=== PATIENT | female | born 1930 | race Caucasian/White ===

== ENCOUNTER 2017-05-18 11:12 | Inpatient (IN) | payer MEDICARE, OTHER ==
[2017-05-18 12:09] LABS: #Lymphocytes 1.4 thou/uL (1.20-3.40); #Monocytes 1.2 thou/uL (0.11-0.59); #Neutrophils 6.7 thou/uL (1.40-6.50); %Eosinophils 0.4 % (0.0-10.0); %Monocytes 12.7 % (0.0-10.0); Hematocrit 40.2 % (36.0-47.0); Mean Platelet Volume 7.9 fL (7.4-10.4); White Blood Cell (WBC) Count 9.3 thou/uL (4.8-10.8)
[2017-05-18 12:18] LABS: Prothrombin Time 14.2 SEC (12.0-14.7)
[2017-05-18 12:19] LABS: PTT 40.1 SEC (22.9-36.1)
[2017-05-18 12:32] LABS: ALT (SGPT) 19 U/L (8-55); AST (SGOT) 23 U/L (5-34); Alkaline Phosphatase 116 U/L (40-150); Anion Gap 13 mmol/L (10-20); BUN (Urea Nitrogen) 13 mg/dL (9.8-20.1); Bilirubin, Total 0.6 mg/dL (0.2-1.2); CK (CPK) 113 U/L (29-168); Calc. Creatinine Clearance 0 mL/min (70-130); Calcium 10.8 mg/dL (7.8-10.44); Carbon Dioxide 22 mmol/L (23-31); Chloride 105 mmol/L (98-107); Estimated GFR-MDRD 64; Globulin 2.7 g/dL (2.4-3.5); Lipase 40 U/L (8-78); Protein, Total 6.8 g/dL (6.0-8.3)
[2017-05-18 12:36] LABS: Troponin I 0.016 ng/mL (< 0.028)
--- NOTE | 2017-05-18 12:44 | RAD ---
FRONTAL CHEST RADIOGRAPH: 05/18/2017 COMPARISON: 06/12/2016 HISTORY: Shortness of breath and congestion, cough. FINDINGS: There is new hazy opacity in the left lung base partially obscuring the lateral aspect of the left he midiaphragm. Post-surgical clips are present in right upper quadrant. Stable dual-lead transvenous pacing device in place. A loop recorder overlies the left hemithorax. There is a rounded area of density with internal gas noted at the gastroesophageal junction/lower nakia st, evidence of a hiatal hernia. IMPRESSION: New patchy opacities noted within the left lung base. These findings may be on the basis of infectio us pneumonitis/aspiration. Recommend PA and lateral chest imaging following treatment to document re solution. POS: [facility]
[2017-05-18 16:24] LABS: Bilirubin Negative (Negative); Blood, Urine Negative (Negative); Glucose, Urine (Dipstick) Negative (Negative); Ketone, Urine Negative (Negative); Nitrite Positive (Negative); Protein, Urine (Dipstick) Trace mg/dL (Neg-Trace); Urobilinogen 0.2 mg/dL (0.2-1.0)
[2017-05-18 16:39] LABS: RBC/HPF 0-3 HPF (0-3); Squamous Epithelial 21-50 HPF (0-3); WBC/HPF 0-3 HPF (0-3)
[2017-05-18] MEDS ORDERED: Cefepime 2 GM/10 ML SYR ONE (16:39)
[2017-05-18 16:40] LABS: Bacteria/HPF Rare-Few HPF (None Seen); Hyaline Casts/LPF NONE SEEN LPF (0-3 Hyaline)
--- NOTE | 2017-05-18 16:45 | PDOC.EVN ---
Event Note - Event Note Event Note: Pt admbayron,connie note dictated. Discussed with her MPOA Hernandezlinwood Davalos at the Bedside. She has an OOH DNR and pt does not want CPR, intubation, shocks, but BiPAP is okay. Code status update din the chart.
--- NOTE | 2017-05-18 17:14 | HP ---
CHIEF COMPLAINT: Shortness of breath. HISTORY OF PRESENT ILLNESS: Ms. Brown is an 86-year-old white female with a history of coronary a rtery disease, hypertension, hyperlipidemia, past DVTs and pulmonary emboli, and multiple cancers who presents to the Emergency Department for shortness of breath. The patient is a resident of [facility]. She woke up this morning and was not acting her normal self. Seemed to be more tired, no appetite, and had a very wet cough. Family was contac mouna and she was sent to the emergency department for evaluation. Here, her labs have been normal. S he has had a decreased O2 saturations relieved by being on 2 liters nasal cannula, her vitals have be en relatively stable, and chest x-ray showed a possible left lower lobe basal infiltrate. We were abdullahi bsequently called for admission. The patient just feels too weak to go home. She denies any fevers or chills, no GI bleeding, no chest pain, no diarrhea or constipation. PAST MEDICAL HISTORY: 1. Coronary artery disease status post [place] 2014. Last heart catheterization was in 06/2016. 2. Hypertension. 3. Hyperlipidemia. 4. Bladder cancer. 5. Renal tumor. 6. Osteoarthritis. 7. Dementia. 8. History of deep venous thrombosis/pulmonary embolism. PAST SURGICAL HISTORY: 1. PTCA in 2017. 2. Pacemaker placement. 3. Bladder tumor resection x4. 4. Bilateral total knee arthroplasty. 5. Left total hip arthroplasty. 6. Basal cell carcinoma removal. HOME MEDICATIONS: 1. Amlodipine 5 mg p.o. daily. 2. Atorvastatin 40 mg p.o. at bedtime. 3. Namenda 10 mg p.o. b.i.d. 4. Aspirin 81 mg daily. 5. Multivitamin daily. 6. MiraLax 17 grams p.o. daily. 7. KCl 20 mEq p.o. b.i.d. 8. Lisinopril 10 mg daily. 9. Isosorbide mononitrate 30 mg p.o. daily. 10. Sublingual nitro p.r.n. ALLERGIES: PENICILLIN, reaction not even sure that she really has it. FAMILY HISTORY: Negative for clotting or bleeding disorder, no immune dysfunction. Not relevant in 86-year-old. SOCIAL HISTORY: She lives at [facility]. Negative habits x3. Her sons accompanied her here. REVIEW OF SYSTEMS: A 10-point review of systems was performed, negative for all other systems except as per HPI. PHYSICAL EXAMINATION: VITAL SIGNS: Temperature 98.2, pulse 96, blood pressure 179/73, respiratory rate 21, satting 94% on 2 liters. GENERAL: She is awake. She is alert. She is oriented to person and place. She appears to be in no acute distress, but looks like she does feel well. HEENT: Normocephalic, atraumatic. Pupils equal, reactive bilaterally. Mucosa is moist. She has no visible lesions and no thrush. NECK: Supple, without lymphadenopathy, JVD, or thyromegaly. CHEST: Lungs are clear anteriorly and on the right. Laterally and posteriorly in the base on the le ft. There are some crackles. They actually do clear with deep inspiration. On the upper right side and upper left thigh, she does have some high pitched expiratory wheezing. CARDIOVASCULAR: She has a normal S1, S2. She is slightly tachycardic. She has no audible murmurs a re present. ABDOMEN: Soft. It is nontender, nondistended. She has good bowel sounds. She does have a ventral hernia. There is no rebound, rigidity or guarding. EXTREMITIES: No cyanosis, no clubbing, and no edema. She has 1+ peripheral pulses in dorsalis pedis and the posterior tibial arteries bilaterally. SKIN: Otherwise warm, moist and well perfused. She has no rashes, no lesions. MUSCULOSKELETAL: Normal to inspection. Bilateral knee arthroplasty site incisions are clean, dry, a nd intact. She has no erythema and no palpable effusions. NEUROLOGIC: Cranial nerves II-XII to be grossly intact. She has a normal speech, she has 4/5 streng th in all 4 of her extremities. She has no focal deficits. LABORATORY EVALUATION: CMP shows sodium 136, potassium 4.2, creatinine 0.84, glucose 125, calcium 10 .8 and liver functions are normal. CBC showed a white count of 9.3 with a normal differential, hemoglobin 13.0, hematocrit of 40.2, plat elet count 213,000. INR was 1.1. CK-MB was 1.3. Troponin I was 0.016. Lipase is normal at 40. Ch est x-ray showed left basilar patchy infiltrate, hiatal hernia, but otherwise no acute cardiopulmonar y disease. ASSESSMENT AND PLAN: 1. Community-acquired pneumonia: Left base. The patient does not have a history of aspiration. I will place her on levofloxacin. She does have unlikely, but present PENICILLIN allergy. We will not challenge her today. 2. Acute hypoxemic respiratory failure. The patient is requiring oxygen. She has been expiratory w heezing. We will give some albuterol nebulizer treatments p.r.n. and DuoNebs q.2 h. She does not martell ve a history of chronic obstructive pulmonary disease or tobacco use. We will not give her steroids at this point in time. 3. Coronary artery disease, currently stable. CK-MB and troponin negative. No symptoms. 4. Hypertension, amlodipine, and lisinopril. We will continue the isosorbide. We will continue at present. 5. Hyperlipidemia, on atorvastatin. We will continue. 6. History of dementia, on Namenda, we will continue. Also, continue aspirin 81 mg daily. The patient will be placed in observation overnight, repeat chest x-ray in the morning, repeat lab wo rk in the morning, continue antibiotics. We will reevaluate her at that time.
[2017-05-18] MEDS ORDERED: HYDROcodone/Acetaminophen 5/325 mg Tablet PO PRN (19:02)
[2017-05-18] MEDS ORDERED: Ondansetron ODT 4 MG TAB PO PRN (19:02)
[2017-05-18] MEDS ORDERED: Acetaminophen 325 MG TAB PO PRN (19:02)
[2017-05-18] MEDS: Sodium Chloride 0.9% 1,000 ML IV SCH (20:08)
[2017-05-18] MEDS: Famotidine 20 MG TAB PO SCH (20:08)
[2017-05-18] MEDS ORDERED: Ipratropium Bromide 2.5 ml Neb ONE (20:09)
[2017-05-18] MEDS: Albuterol Sulfate 2.5 mg/3 ml Neb NEB SCH ×3 (20:37→21:31)
[2017-05-18 21:43] VITALS: BMI 26.1
[2017-05-19] MEDS: Albuterol Sulfate 2.5 mg/3 ml Neb NEB SCH ×3 (00:27→05:57)
[2017-05-19 05:07] LABS: Anion Gap 11 mmol/L (10-20); BUN (Urea Nitrogen) 12 mg/dL (9.8-20.1); Calc. Creatinine Clearance 56 mL/min (70-130); Calcium 10.2 mg/dL (7.8-10.44); Carbon Dioxide 23 mmol/L (23-31); Chloride 106 mmol/L (98-107); Estimated GFR-MDRD 66
[2017-05-19 06:22] LABS: Band 1 % (5-11); Hematocrit 36.3 % (36.0-47.0); Macrocytosis SLIGHT = 6-15 cells (100X) (0-5/hpf); Mean Platelet Volume 7.8 fL (7.4-10.4); Neutrophil 75 % (42-75); Reactive Lymphocytes 1 % (0-10); Red Blood Cell (RBC) Count 3.58 mill/uL (4.20-5.40); White Blood Cell (WBC) Count 6.3 thou/uL (4.8-10.8)
[2017-05-19] MEDS ORDERED: FLU VACC TS2017-18 (>65YR) 0.5 ML SYRINGE IM ONE (09:00)
[2017-05-19] MEDS: Famotidine 20 MG TAB PO SCH ×2 (09:19→21:16)
--- NOTE | 2017-05-19 10:56 | PDOC.PN ---
- Subjective Encounter Start Date: 05/19/17 Encounter Start Time: 08:50 Pt feels a little better today. doesnt walk at home, but does transfer to a transporter chair. awaiting PT/OT eval. Persistently hypoxic at 88% on Ra earlier this morning. No f/C, no N/V/D/C, no CP, no chills or rigors, no abd pain, no GI bleeding 10 point ROS performed and neg for all systems except as per HPI - Objective Resuscitation Status: Resuscitation Status DNR:Do Not Resuscitate MAR Reviewed: Yes Vital Signs & Weight: Vital Signs (12 hours) Temp Pulse Resp BP BP Pulse Ox 05/19/17 08:07 94 L 05/19/17 08:05 75 20 94 L 05/19/17 08:00 98 F 75 20 05/19/17 07:36 98.5 F 80 18 159/70 H 89 L 05/19/17 03:46 98.4 F 88 18 149/65 H 05/19/17 03:04 96 05/19/17 00:22 85 16 95 05/18/17 23:40 98.7 F 83 16 145/67 H 97 Weight Admit Weight 162 lb Weight 162 lb I&O: 05/18/17 05/19/17 05/20/17 06:59 06:59 06:59 Intake Total 435 Balance 435 Result Diagrams: 05/19/17 04:07 05/19/17 04:07 Additional Labs: Accuchecks 05/18/17 17:47 POC Glucose 108 Radiology Reviewed by me: Yes EKG Reviewed by me: Yes Phys Exam - Physical Examination Constitutional: NAD HEENT: PERRLA, moist MMs, sclera anicteric, oral pharynx no lesions Neck: no nodes, no JVD, supple, full ROM Respiratory: no wheezing, no rhonchi left posterior crackles stable. Wheezing gone. Cardiovascular: RRR, no significant murmur, no rub Gastrointestinal: soft, non-tender, no distention, positive bowel sounds Musculoskeletal: no edema, pulses present Neurological: non-focal, normal sensation, moves all 4 limbs Lymphatic: no nodes Psychiatric: normal affect, A&O x 3 Skin: no rash, normal turgor, cap refill <2 seconds Dx/Plan (1) CAP (community acquired pneumonia) Code(s): J18.9 - PNEUMONIA, UNSPECIFIED ORGANISM Status: Acute Qualifiers: Laterality: left Lung location: lower lobe of lung Qualified Code(s): J18.1 - Lobar pneumonia, unspecified organism Comment: On levoflox. Afebrile, repeat CXR report pending (2) Dementia Code(s): F03.90 - UNSPECIFIED DEMENTIA WITHOUT BEHAVIORAL DISTURBANCE Status: Chronic Qualifiers: Dementia type: unspecified type Dementia behavioral disturbance: without behavioral disturbance Qualified Code(s): F03.90 - Unspecified dementia without behavioral disturbance (3) Dyslipidemia Code(s): E78.5 - HYPERLIPIDEMIA, UNSPECIFIED Status: Chronic (4) H/O thromboembolism Code(s): Z86.718 - PERSONAL HISTORY OF OTHER VENOUS THROMBOSIS AND EMBOLISM Status: Chronic Comment: off of anticoagulation due to massive GI bleed (5) Hypertension Code(s): I10 - ESSENTIAL (PRIMARY) HYPERTENSION Status: Chronic Qualifiers: Hypertension type: essential hypertension Qualified Code(s): I10 - Essential (primary) hypertension (6) Acute hypoxemic respiratory failure Code(s): J96.01 - ACUTE RESPIRATORY FAILURE WITH HYPOXIA Status: Acute Comment: wean off o2 as tolerated - Plan cont current plan of care, plan discussed w/ family, continue antibiotics, PT/OT , respiratory therapy * .
[2017-05-19] MEDS: Sodium Chloride 0.9% 1,000 ML IV SCH (16:00)
[2017-05-20 06:22] LABS: Anion Gap 12 mmol/L (10-20); BUN (Urea Nitrogen) 12 mg/dL (9.8-20.1); Calc. Creatinine Clearance 60 mL/min (70-130); Calcium 9.9 mg/dL (7.8-10.44); Carbon Dioxide 22 mmol/L (23-31); Chloride 110 mmol/L (98-107); Estimated GFR-MDRD 72; Magnesium 2.2 mg/dL (1.6-2.6)
[2017-05-20] MEDS: Famotidine 20 MG TAB PO SCH (08:12)
--- NOTE | 2017-05-20 08:49 | RAD ---
CHEST ONE VIEW: Comparison: 05-18-17 FINDINGS: Left lower lobe opacity is improving. No pneumothorax. IMPRESSION: Improvement in left lower lobe opacity suggests improving pneumonia or edema. POS: [facility]
[2017-05-20] MEDS: Sodium Chloride 0.9% 1,000 ML IV SCH (11:54)
[2017-05-20 12:59] VITALS: BP 156/81; TEMP 98.1
--- NOTE | 2017-05-20 13:00 | DIS ---
DATE OF ADMISSION: 05/19/2017 DATE OF DISCHARGE: 05/20/2017 DISCHARGE DIAGNOSES: 1. Community-acquired pneumonia. 2. Acute hypoxemic respiratory failure. 3. Hypertension. 4. Hyperlipidemia. 5. Chronic anticoagulation 6. History of thromboembolism. 7. Dementia. CONSULTATIONS: None. PROCEDURES: None. HISTORY AND PHYSICAL: Ms. Brown is an 86-year-old female who presented in the emergency [facility] on 05/18/2017 after waking up and feeling poorly. Throughout the day she maintained a cough and sh ortness of breath and so was brought to the emergency department for evaluation. There she was found to be slightly hypoxic, she had left lower lobe infiltrate, we were called for ad mission. HOSPITAL COURSE: The patient was seen and examined. She was admitted to inpatient, she was placed o n the medical floor and started on IV levofloxacin. She was given oxygen and nebulizer treatments. Overnight 05/18/2017 to 05/19/2017, she began to improve. She was doing better, but still requiring oxygen. She tolerated her antibiotics well. She is not ambulatory and so was worked with PT in bed. She did improve on 05/19/2017 to 05/20/2017, she was weaned off oxygen, a repeat chest x-ray showed marked improvement in the left lobe infiltrat e, and she was stable discharged back to her assisted living facility [facility]. PHYSICAL EXAMINATION: The patient was seen and examined on the day of discharge. Discharge plan and disposition were discussed with the patient and her son [id number] at the [facility]. DISCHARGE MEDICATIONS: 1. Levofloxacin 500 mg daily 7 tablets 1 p.o. daily until gone. 2. Nebulizer treatments, DuoNeb q.6 hours. 3. Tylenol as needed. 4. Amlodipine 5 mg daily. 5. Aspirin 81 mg daily. 6. Lipitor 40 mg at bedtime. 7. Vitamin D3 of 5000 units daily. 8. Digestive Enzymes daily. 9. Iron sulfate 325 mg p.o. at bedtime. 10. Isosorbide mononitrate 30 mg daily. 11. Lisinopril 10 mg at bedtime. 12. Memantine 10 mg b.i.d. 13. Nitrostat p.r.n. 14. KCl 10 mEq p.o. b.i.d. DISCHARGE CONDITION: Good. DISPOSITION: Being discharged back to [facility] third floor with nursing care. FOLLOWUP APPOINTMENTS: Dr. Bertrand in a week. DISCHARGE ACTIVITY: As tolerated. DISCHARGE DIET: Heart healthy recommended.
== END 2017-05-20 13:30 | disposition home or self-care (01) | DRG 193 ==
LOC: ERS 11:12 → 2SW 16:55 → OBSVTOIN 05-19 10:59 → T4-A 05-19 14:03
PROVIDERS: ADMIT Internal Medicine Infectious Disease; ATTEND Internal Medicine Infectious Disease
DX: J18.9 Pneumonia, unspecified organism (principal); J96.01 Acute respiratory failure with hypoxia; I25.10 Atherosclerotic heart disease of native coronary artery without angina pectoris; I10 Essential (primary) hypertension; E78.5 Hyperlipidemia, unspecified; Z86.718 Personal history of other venous thrombosis and embolism; Z86.711 Personal history of pulmonary embolism; I25.2 Old myocardial infarction; M19.90 Unspecified osteoarthritis, unspecified site; F03.90 Unspecified dementia, unspecified severity, without behavioral disturbance, psychotic disturbance, mood disturbance, and anxiety; Z95.0 Presence of cardiac pacemaker; Z85.828 Personal history of other malignant neoplasm of skin; Z79.01 Long term (current) use of anticoagulants; Z66 Do not resuscitate
CPT/HCPCS: 36415; 36416; 71010; 80048; 80053; 81003; 81015; 82553; 83690; 83735; 84484; 85025; 85610; 85730; 87040; 93005; 94640; 94760; 96365; 96366; G8981-GP-CK; G8982-GP-CJ; G8987-GO-CL; G8988-GO-CL; G8989-GO-CL; J0692; J1956; J7611; J7620; J7644

== ENCOUNTER 2017-09-02 20:25 | Emergency (ER) | payer MEDICARE, OTHER ==
[2017-09-02] MEDS ORDERED: Acetaminophen 500 MG TAB ONE ×2 (20:57→21:04)
--- NOTE | 2017-09-02 21:21 | RAD ---
RIGHT HIP TWO VIEWS: 09/02/17 HISTORY: Right hip degenerative changes without acute femoral fracture. Again noted are right superior and inferior ischial pubic rami fractures. IMPRESSION: No evidence for right hip or femoral fracture. Minimally displaced right superior and inferior ischia l pubic rami fractures. POS: [facility]
[2017-09-02] MEDS ORDERED: traMADol HCl 50 MG TAB ONE (22:12)
--- NOTE | 2017-09-02 22:21 | RAD ---
AP PELVIS ONE VIEW: 09/02/17 HISTORY: 87-year-old female with history of pain following a fall. Left total hip replacement. Minimally displaced fractures of the right superior and inferior ischiopu bic rami. Heterogeneous bone demineralization. Degenerative changes of the right hip joint. I suspect there may well be associated sacral ala fractures, although they are not definitively imaged on this study. IMPRESSION: Minimally displaced right superior and inferior ischiopubic rami fractures. Total left hip replacemen t. No acute right femoral fracture. POS: [facility]
== END 2017-09-02 22:55 | disposition home or self-care (01) ==
LOC: ERS 20:25
DX: S32.511A Fracture of superior rim of right pubis, initial encounter for closed fracture (principal); E78.5 Hyperlipidemia, unspecified; I10 Essential (primary) hypertension; M19.90 Unspecified osteoarthritis, unspecified site; I25.2 Old myocardial infarction; F03.90 Unspecified dementia, unspecified severity, without behavioral disturbance, psychotic disturbance, mood disturbance, and anxiety; Z86.718 Personal history of other venous thrombosis and embolism; W05.0XXA Fall from non-moving wheelchair, initial encounter
CPT/HCPCS: 72170

== ENCOUNTER 2017-09-07 10:56 | Inpatient (IN) | payer MEDICARE, OTHER ==
[2017-09-07 11:51] LABS: Bilirubin Small (Negative); Blood, Urine Negative (Negative); Clarity CLOUDY (Clear); Glucose, Urine (Dipstick) Negative (Negative); Leukocyte Negative (Negative); Nitrite Negative (Negative); Protein, Urine (Dipstick) Negative (Neg-Trace); Specific Gravity, Urine 1.027 (1.002-1.036)
[2017-09-07 12:02] LABS: #Eosinphils 0.2 thou/uL (0.0-0.7); #Lymphocytes 0.9 thou/uL (1.20-3.40); #Monocytes 1.2 thou/uL (0.11-0.59); #Neutrophils 6.6 thou/uL (1.40-6.50); %Basophils 0.1 % (0.0-1.0); %Eosinophils 1.7 % (0.0-10.0); %Lymphocytes 10.7 % (21.0-51.0); %Neutrophils 74.4 % (42.0-75.0); Hemoglobin 12.4 g/dL (12.0-16.0); Mean Corpuscular HGB CONC 32.9 g/dL (32.0-36.0); Mean Corpuscular Hemoglobin 31.8 pg (27.0-31.0); Mean Corpuscular Volume 96.6 fl (81.0-99.0); Platelet Count 264 thou/uL (130-400); Red Blood Cell (RBC) Count 3.91 mill/uL (4.20-5.40); White Blood Cell (WBC) Count 8.8 thou/uL (4.8-10.8)
[2017-09-07 12:02] LABS: Medtox Reader # READER 4
[2017-09-07 12:03] LABS: Amphetamine Not Detected (NotDetected); Barbiturates Screen Not Detected (NotDetected); Benzodiazepine Screen Not Detected (NotDetected); Cocaine Metabolite Screen Not Detected (NotDetected); Medtox Control Line Valid? VALID (VALID); Methadone Not Detected (NotDetected); Methamphetamine Not Detected (NotDetected); Opiate Screen Not Detected (NotDetected); Oxycodone Screen Not Detected (NotDetected); Phencyclidine (PCP) Not Detected (NotDetected); THC/Cannabinoid Screen Not Detected (NotDetected); Tricyclic Screen Not Detected (NotDetected)
[2017-09-07 12:31] LABS: ALT (SGPT) 15 U/L (8-55); AST (SGOT) 29 U/L (5-34); Albumin 3.8 g/dL (3.4-4.8); Alkaline Phosphatase 96 U/L (40-150); Anion Gap 12 mmol/L (10-20); BUN (Urea Nitrogen) 36 mg/dL (9.8-20.1); CK (CPK) 444 U/L (29-168); Calc. Creatinine Clearance 0 mL/min (70-130); Calcium 11.4 mg/dL (7.8-10.44); Carbon Dioxide 26 mmol/L (23-31); Chloride 107 mmol/L (98-107); Estimated GFR-MDRD 49; Globulin 2.6 g/dL (2.4-3.5); Glucose 146 mg/dL (83-110); Lipase 40 U/L (8-78); Potassium 4.7 mmol/L (3.5-5.1); Protein, Total 6.4 g/dL (6.0-8.3); Sodium 140 mmol/L (136-145)
--- NOTE | 2017-09-07 12:43 | CT ---
CT BRAIN WITHOUT CONTRAST: Comparison: 08-08-13 History: Altered mental status and weakness. Technique: Multiple contiguous axial images were obtained in a CT of the brain without contrast. FINDINGS: Cerebral atrophy is seen. There is prominence of the lateral ventricles, likely secondary to ex vacuo dilatation from the atrophy. There is no evidence of large confluent infarction. There is no evidenc e of hydrocephalus, intracranial hemorrhage, or extraaxial fluid collection. The calvarium and overlying soft tissues are unremarkable. The visualized paranasal sinuses and masto id air cells are well aerated. IMPRESSION: No evidence of acute intracranial abnormality. POS: [facility]
--- NOTE | 2017-09-07 12:44 | RAD ---
RADIOGRAPH CHEST 1 VIEW: HISTORY: An 87-year-old female with altered mental status. FINDINGS: There are no air space densities, pulmonary edema, pneumothorax, or cardiomegaly. The lateral costop hrenic angles are sharp. IMPRESSION: 1. No acute cardiopulmonary findings. 2. Left subclavian pacemaker. wayne [] POS: [facility]
[2017-09-07] MEDS ORDERED: ISOVUE-370 76%-LOCM 1 ML ONE (14:48)
--- NOTE | 2017-09-07 14:51 | CT ---
CT OF THE ABDOMEN AND PELVIS WITH CONTRAST: COMPARISON: 03/13/16. History Altered mental status. Decreased oxygen saturation. Recent fall with pubic ramus fracture. TECHNIQUE: Multiple contiguous axial images were obtained in a CT of the abdomen and pelvis with contrast. [place] nal reformats were performed. FINDINGS: The patient is status post left nephrectomy. The adrenal gland is also not visualized on the left an d may have been removed. The liver, gallbladder, right adrenal gland, spleen, and pancreas are unrem arkable. There are subcentimeter hypodensities in the right kidney which are too small to definitely characterize but likely represent cysts. The large and small bowel are unremarkable. The reproductive organs are atrophic. The appendix is n ormal. No abdominal or pelvic lymphadenopathy are seen. Atherosclerotic calcifications are seen in the aorta. There is a large hiatal hernia. Atelectasis is seen in the lung bases. Degenerative changes are see n in the spine. There are fractures of the right superior and inferior pubic rami. The abdominal wa ll soft tissues are unremarkable. IMPRESSION: 1. No evidence of acute intraabdominal/pelvic abnormality. 2. Likely right renal cyst. 3. Bilateral atelectasis. 4. Hiatal hernia. POS: [facility]
[2017-09-07] MEDS ORDERED: Ondansetron ODT 4 MG TAB PO PRN (16:06)
[2017-09-07] MEDS ORDERED: Ondansetron HCl/PF 4 MG/2 ML Vial IVP PRN (16:06)
[2017-09-07] MEDS ORDERED: Acetaminophen 325 MG TAB PO PRN (16:06)
[2017-09-07 16:12] VITALS: BMI 24.1
[2017-09-07] MEDS: Sodium Chloride 0.9% 1,000 ML IV SCH (17:00)
[2017-09-07 17:06] LABS: CKMB 1.7 ng/mL (0-6.6); Troponin I 0.023 ng/mL (< 0.028)
[2017-09-07] MEDS ORDERED: Prevnar 13-Val Conj/PF 0.5 ML SYRINGE IM ONE (18:45)
[2017-09-07] MEDS: Ferrous Sulfate 325 MG TAB PO SCH (22:17)
[2017-09-07] MEDS: Lisinopril 10 MG TAB PO SCH (22:17)
[2017-09-07] MEDS: Famotidine 20 MG TAB PO SCH (22:17)
[2017-09-07] MEDS: Atorvastatin Calcium 40 MG TAB PO SCH (22:17)
[2017-09-08 05:46] LABS: #Eosinphils 0.3 thou/uL (0.0-0.7); #Lymphocytes 1.1 thou/uL (1.20-3.40); #Monocytes 1.1 thou/uL (0.11-0.59); #Neutrophils 5.4 thou/uL (1.40-6.50); %Basophils 0.4 % (0.0-1.0); %Eosinophils 4.3 % (0.0-10.0); %Lymphocytes 14.2 % (21.0-51.0); %Monocytes 13.6 % (0.0-10.0); %Neutrophils 67.5 % (42.0-75.0); Mean Corpuscular HGB CONC 33.4 g/dL (32.0-36.0); Mean Corpuscular Hemoglobin 32.3 pg (27.0-31.0); Mean Corpuscular Volume 96.8 fl (81.0-99.0); Mean Platelet Volume 7.1 fL (7.4-10.4); Platelet Count 253 thou/uL (130-400); RBC Distribution Width 13.1 % (11.5-14.5); White Blood Cell (WBC) Count 7.9 thou/uL (4.8-10.8)
[2017-09-08 05:58] LABS: Anion Gap 7 mmol/L (10-20); BUN (Urea Nitrogen) 30 mg/dL (9.8-20.1); Calc. Creatinine Clearance 54 mL/min (70-130); Calcium 10.7 mg/dL (7.8-10.44); Carbon Dioxide 26 mmol/L (23-31); Chloride 111 mmol/L (98-107); Estimated GFR-MDRD 73; Glucose 100 mg/dL (83-110); Potassium 4.1 mmol/L (3.5-5.1); Sodium 140 mmol/L (136-145)
[2017-09-08] MEDS: Sodium Chloride 0.9% 1,000 ML IV SCH ×2 (07:15→23:26)
[2017-09-08] MEDS: Amlodipine 5 MG TAB PO SCH (11:17)
[2017-09-08] MEDS: Aspirin 81 mg Enteric Coated Tablet PO SCH (11:18)
--- NOTE | 2017-09-08 11:29 | HP ---
DATE OF ADMISSION: 09/07/2017 PRIMARY CARE PHYSICIAN: Dr. Berry Bertrand. CHIEF COMPLAINT: Altered mental status and weakness. HISTORY OF PRESENT ILLNESS: Ms. Brown is a pleasant 87-year-old female whom I know from previous hospital stay. The patient fell 5 days ago and suffered a right pubic ramus fracture. She was seen in the Emergency Department, sent home on tramadol 50 mg q.i.d. p.r.n. She continued to have problems with pain and really had not walked in 5 days. Two days ago, on 09/05, the patient was increased on her tramadol to 100 mg q.6 hours. Yesterday, she was more somnolent, but today was even moreso and basically had not eaten or had a drink in about 2 days. No chest pain or shortness of breath. No nausea or vomiting. Home health care nurse saw the patient at her apartment, where she was found to be 70% on room air. Blood pressure was normal at 101/14 and the patient was sent by EMS to the Emergency Department. On arrival here, vital signs have been stable, but a temperature was reportedly 100.2 rectally, since being in the Emergency Department in the last couple hours she has actually woken up more and talking more clearly. She was initially requiring 95% saturations maintained by nonrebreather but currently is on 2 liter nasal cannula. The patient is otherwise confused and unable to give any further information. Both of her sons are at the bedside. PAST MEDICAL HISTORY: 1. Dementia. 2. Hypertension 3. Hyperlipidemia. 4. Skin cancer status post removal. 5. Bladder cancer. 6. Left renal tumor status post nephrectomy. 7. Osteoarthritis. 8. DVT/PE back in 11/2014. 9. Coronary artery disease, status post [place] in 2014. 10. Probable chronic kidney disease, stage 3. PAST SURGICAL HISTORY: 1. Gallbladder surgery x4. 2. Left carotid endarterectomy. 3. L4-L5 laminectomy. 4. Left nephrectomy. 5. Bilateral total knee arthroplasty. 6. Left GEORGINA. 7. Basal cell cancer removed from the left shoulder. 8. PTCA and ablation with a permanent pacemaker placement for atrial fibrillation. 9. Implantable loop recorder. HOME MEDICATIONS: 1. Amlodipine 5 mg p.o. daily. 2. Aspirin 81 mg daily. 3. Atorvastatin 40 mg p.o. at bedtime. 4. Iron sulfate 325 mg daily. 5. Isosorbide mononitrate 30 mg daily. 6. Lisinopril 10 mg daily. 7. Tramadol 100 mg p.o. q.6 hours p.r.n. ALLERGIES: PENICILLIN, reactions unknown. FAMILY HISTORY: Negative for clotting or bleeding disorder, no immune dysfunction. SOCIAL HISTORY: She lives at the [facility]. She does have home health care nurse. She has done well for the last several months since her last discharge. She is negative x3. She does have an out of hospital DNR in place. She does not wish to have any shocks, intubation, or CPR. The patient does have a history of chronic atrial fibrillation. She was on Coumadin for some time and developed GI bleed. She has subsequently been taken off that, underwent ablation and pacemaker placement and has now not required and is not on any anticoagulation long-term. REVIEW OF SYSTEMS: A 10-point review of systems was attempted. The patient is too sleepy to really answer any questions. PHYSICAL EXAMINATION: VITAL SIGNS: Temperature 100.2, pulse 77, blood pressure 133/64, respiratory rate 16, satting 95% on 4 liters, 92% to 93% on 2 liters nasal cannula. GENERAL: She is awake. She is alert. She is oriented to person only. She is in no acute distress. HEENT: Normocephalic, atraumatic. Pupils equal and reactive bilaterally, mucous membranes are moist. She has no visible lesions. No thrush. NECK: Supple, without lymphadenopathy, JVD, or thyromegaly. She has normal carotid upstroke. I do not appreciate bruits. LUNGS: Clear to auscultation bilaterally. No wheezes, no rales, no rhonchi. She has good air movement. Symmetrical chest excursion. CARDIOVASCULAR: She is regular and paced. She has normal S1 and S2. I do not appreciate any murmurs. ABDOMEN: Soft, distended and tympanitic. She has got hyperactive bowel sounds present all 4 quadrants. There is no rebound, rigidity or guarding. EXTREMITIES: Show no cyanosis, clubbing and trace pedal edema. She has got 1+ dorsalis pedis pulses bilaterally. Posterior tibial are palpable but thready. SKIN: Otherwise, warm, moist, and well perfused. She has no other rashes or lesions. NEUROLOGIC: Cranial nerves II-XII are grossly intact. She follows all commands easily. Speech is normal, but a few words. She has no focal neurologic deficits and 5/5 strength in all 4 extremities. MUSCULOSKELETAL: Shows a large joint to be normal to inspection. There is no palpable effusions. No inflammation. LABORATORY DATA: Sodium is 140, potassium 4.7, chloride 107, bicarb 26, BUN 36 , creatinine 1.05, calcium 11.4, and glucose 146. The liver functions are completely within normal limits. CBC showed a white count of 8.8, normal differential, hemoglobin is 12.9, hematocrit of hematocrit 37.8, platelet count is 204,000. Her lactic acid is normal at 0.9. CK total was 444. Urine drug screen negative. Urinalysis normal and lipase only 40. Chest x-ray showed a left subclavian permanent pacemaker placement. Brain CT showed no acute changes. ASSESSMENT AND PLAN: 1. Metabolic encephalopathy. 2. Accidental tramadol overdose. 3. Hypertension. 4. Dementia. 5. Hyperlipidemia. 6. History of skin cancer. 7. History of left renal tumor status post nephrectomy. 8. Chronic kidney disease stage 3. 9. History of deep vein thrombosis, pulmonary embolism remotely. 10. History of coronary artery disease. 11. Acute hypoxic respiratory failure: The patient is currently on oxygen. Wean as tolerated. I suspect she is overdosed on her tramadol and when it wears off, she will likely wake up. The patient in observation, will ask PT, OT to evaluate and treat. We will hold her pain medicines for now and continue regular home medications otherwise. I will follow up on her. YOGESH
--- NOTE | 2017-09-08 12:32 | PDOC.PN ---
- Subjective Encounter Start Date: 09/08/17 Encounter Start Time: 10:50 Pt much more awake and alert today, still occasionaly off and mumbling. Ot attmepted ot get up, but pt cried out in pain when she was trnasferred to sitting position. No F/C, no N/V/D/c, no CP or SOB 10 point ROS performed and neg for all systems except as per HPI - Objective Resuscitation Status: Resuscitation Status DNR:Do Not Resuscitate MAR Reviewed: Yes Vital Signs & Weight: Vital Signs (12 hours) Temp Pulse Pulse Pulse Pulse Resp BP 09/08/17 11:17 82 136/60 09/08/17 09:50 75 80 85 09/08/17 08:00 97.1 F L 82 26 H 09/08/17 04:00 98.4 F 72 20 BP Pulse Ox Pulse Ox Pulse Ox Pulse Ox 09/08/17 11:17 09/08/17 09:50 85 L 92 L 95 09/08/17 08:00 136/60 84 L 09/08/17 04:00 119/55 L 92 L Weight Weight 145 lb I&O: 09/07/17 09/08/17 09/09/17 06:59 06:59 06:59 Intake Total 1700 360 Balance 1700 360 Result Diagrams: 09/08/17 05:29 09/08/17 05:29 Radiology Reviewed by me: Yes EKG Reviewed by me: Yes Phys Exam - Physical Examination Constitutional: NAD HEENT: PERRLA, moist MMs, sclera anicteric, oral pharynx no lesions Neck: no nodes, no JVD, supple, full ROM Respiratory: no wheezing, no rales, no rhonchi, clear to auscultation bilateral Cardiovascular: RRR, no significant murmur, no rub Gastrointestinal: soft, non-tender, no distention, positive bowel sounds Musculoskeletal: pulses present, edema present Neurological: non-focal, normal sensation, moves all 4 limbs Lymphatic: no nodes Psychiatric: normal affect Deviation from normal: alert, awake, oriented x 1 Skin: no rash, normal turgor, cap refill <2 seconds Dx/Plan (1) Acute metabolic encephalopathy Code(s): G93.41 - METABOLIC ENCEPHALOPATHY Status: Acute Comment: secondary to overdose of tramadol. recommended max dose /24 hours is 300, pt was on 400. better after holding, but still not back to baseline. will change to inpatient, transfer to medical, and will ask case management to eval for SNF palcement. [place] [facility] unable to do skilled (2) Accidental overdose Code(s): T50.901A - POISONING BY UNSP DRUG/MEDS/BIOL SUBST, ACCIDENTAL, INIT Status: Acute Qualifiers: Encounter type: initial encounter Qualified Code(s): T50.901A - Poisoning by unspecified drugs, medicaments and biological substances, accidental ( unintentional), initial encounter Comment: tramadol, overdosed for pt age and renal function (3) Physical deconditioning Code(s): R53.81 - OTHER MALAISE Status: Acute (4) Dehydration, moderate Code(s): E86.0 - DEHYDRATION Status: Acute Comment: seocndary to AMs, decreased moblilit. Ate good today, stop fluids, watch (5) CAD (coronary artery disease) Code(s): I25.10 - ATHSCL HEART DISEASE OF [place] CORONARY ARTERY W/O ANG PCTRS Status: Chronic Qualifiers: Coronary Disease-Associated Artery/Lesion type: [place] artery [place] vs. transplanted heart: [place] heart Associated angina: without angina Qualified Code(s): I25.10 - Atherosclerotic heart disease of [place] coronary artery without angina pectoris (6) Dementia Code(s): F03.90 - UNSPECIFIED DEMENTIA WITHOUT BEHAVIORAL DISTURBANCE Status: Chronic Qualifiers: Dementia type: unspecified type Dementia behavioral disturbance: without behavioral disturbance Qualified Code(s): F03.90 - Unspecified dementia without behavioral disturbance (7) Dyslipidemia Code(s): E78.5 - HYPERLIPIDEMIA, UNSPECIFIED Status: Chronic (8) Hypertension Code(s): I10 - ESSENTIAL (PRIMARY) HYPERTENSION Status: Chronic Qualifiers: Hypertension type: essential hypertension Qualified Code(s): I10 - Essential (primary) hypertension - Plan cont current plan of care, plan discussed w/ family, PT/OT, social media community manager, respiratory therapy, out of bed/ambulate, DVT proph w/SCDs * .
[2017-09-08] MEDS: Atorvastatin Calcium 40 MG TAB PO SCH (20:36)
[2017-09-08] MEDS: Famotidine 20 MG TAB PO SCH (20:36)
[2017-09-08] MEDS: Lisinopril 10 MG TAB PO SCH (20:37)
[2017-09-08] MEDS: Ferrous Sulfate 325 MG TAB PO SCH (20:37)
[2017-09-09 06:18] LABS: #Basophils 0.1 thou/uL (0.0-0.2); #Eosinphils 0.3 thou/uL (0.0-0.7); #Lymphocytes 1.1 thou/uL (1.20-3.40); #Monocytes 1.1 thou/uL (0.11-0.59); #Neutrophils 5.8 thou/uL (1.40-6.50); %Basophils 0.7 % (0.0-1.0); %Eosinophils 3.7 % (0.0-10.0); %Lymphocytes 12.8 % (21.0-51.0); %Monocytes 12.8 % (0.0-10.0); Hemoglobin 12.8 g/dL (12.0-16.0); Mean Corpuscular HGB CONC 32.6 g/dL (32.0-36.0); Mean Corpuscular Hemoglobin 31.2 pg (27.0-31.0); Mean Corpuscular Volume 95.6 fl (81.0-99.0); Mean Platelet Volume 6.9 fL (7.4-10.4); Platelet Count 282 thou/uL (130-400); RBC Distribution Width 12.9 % (11.5-14.5); White Blood Cell (WBC) Count 8.2 thou/uL (4.8-10.8)
[2017-09-09 06:36] LABS: Anion Gap 10 mmol/L (10-20); BUN (Urea Nitrogen) 21 mg/dL (9.8-20.1); Calc. Creatinine Clearance 59 mL/min (70-130); Calcium 10.7 mg/dL (7.8-10.44); Carbon Dioxide 25 mmol/L (23-31); Chloride 110 mmol/L (98-107); Estimated GFR-MDRD 82; Glucose 101 mg/dL (83-110); Magnesium 2.2 mg/dL (1.6-2.6); Potassium 3.7 mmol/L (3.5-5.1); Sodium 141 mmol/L (136-145)
[2017-09-09] MEDS: Amlodipine 5 MG TAB PO SCH (08:53)
[2017-09-09] MEDS: Aspirin 81 mg Enteric Coated Tablet PO SCH (08:53)
[2017-09-09] MEDS: Sodium Chloride 0.9% 1,000 ML IV SCH (15:00)
--- NOTE | 2017-09-09 15:04 | DIS ---
DATE OF ADMISSION: 09/08/2017 DATE OF DISCHARGE: 09/09/2017 PRIMARY CARE PHYSICIAN: Berry Bertrand M.D. DISCHARGE DIAGNOSES: 1. Accidental overdose of tramadol. 2. Metabolic encephalopathy. 3. Dementia. 4. Physical deconditioning. 5. Subacute right pubic ramus fracture with intractable pain. 6. Moderate dehydration. 7. History of coronary artery disease, without angina. 8. Hyperlipidemia. 9. Essential hypertension. CONSULTATIONS: None. PROCEDURES: None. HOSPITAL COURSE: Ms. Brown is an 87-year-old female known to me from previous admissions who pres ented in the Emergency Department for altered mental status. She has been increased on her tramadol from 50 q.6 hours to 100 q.6 hours two days prior and had become progressively altered. PAST MEDICAL HISTORY: Is significant for a fall with a pubic ramus fracture 5 days prior to admissio n, decreased activity and not getting out of bed to her wheelchair as usual due to intractable pain a nd that it has been not eating and drinking very good. On arrival in the emergency department, she was arousable, but still confused. We were called for ad mission. HOSPITAL COURSE: The patient was seen and examined by me, placed on observation initially. She was watched overnight and did improve with holding of sedative medications. She was still altered, but w as stabilizing. She was transitioned to inpatient for her metabolic encephalopathy and physical deco nditioning and was transferred to the medical floor. Overnight from 09/08/2017 to 09/09/2017, mental status again continued to improve. She was agitated overnight and did not sleep well and thus in the morning was initially more agitated. She did take a nap and on awaking was back to her baseline mental status. The patient was seen and evaluated by physical therapy and occupational therapy both and recommended [facility] referral, and the patient was accepted at [facility] today and is stable for discharge. The patient was transferred to [facility] in stable condition for continued cynthia abilitation. PHYSICAL EXAMINATION: The patient was seen and examined on the day of discharge. Discharge plan and disposition was discussed with one of her sons who is present at the bedside face- to-face. DISCHARGE MEDICATIONS: 1. Amlodipine 5 mg daily. 2. Aspirin 81 mg daily. 3. Atorvastatin 40 mg daily. 4. Iron sulfate 325 mg daily. 5. Isosorbide mononitrate 30 mg daily. 6. Lisinopril 10 mg daily. 7. Tramadol decreased to 50 mg p.o. q.6 hours p.r.n. 8. Trazodone 50 mg p.o. at bedtime p.r.n. insomnia was added. FOLLOWUP APPOINTMENTS: Dr. Bertrand within a week. DISCHARGE ACTIVITY: Per cardiopulmonary limits. She is wheelchair bound due to a past history of fr equent falls. DISCHARGE DIET: Heart healthy recommended, the patient normally is able to take pills, but was unabl e to swallow them this morning, therefore, she was transitioned to crushed medications and speech the rapy evaluation. DISCHARGE CONDITION: Stable. DISPOSITION: Being transferred via nonemergent EMS over to [facility] for rehabilitation.
[2017-09-09] MEDS ORDERED: traZODone HCl 50 MG TAB PO SCH (21:00)
[2017-09-09] MEDS: Famotidine 20 MG TAB PO SCH (21:10)
[2017-09-09] MEDS: Ferrous Sulfate 325 MG TAB PO SCH (21:11)
[2017-09-09] MEDS: Lisinopril 10 MG TAB PO SCH (21:11)
[2017-09-09] MEDS: Atorvastatin Calcium 40 MG TAB PO SCH (21:11)
[2017-09-10] MEDS: Sodium Chloride 0.9% 1,000 ML IV SCH ×2 (06:43→21:18)
[2017-09-10] MEDS: Amlodipine 5 MG TAB PO SCH (08:03)
[2017-09-10] MEDS: Aspirin 81 mg Enteric Coated Tablet PO SCH (08:04)
[2017-09-10] MEDS: traMADol HCl 50 MG TAB PO PRN (09:38)
[2017-09-10] MEDS ORDERED: traZODone HCl 50 MG TAB PO SCH (10:45)
[2017-09-10] MEDS ORDERED: Lidocaine Patch Removal 1 EACH TOP SCH (11:00)
--- NOTE | 2017-09-10 14:57 | PDOC.PN ---
- Subjective Encounter Start Date: 09/10/17 Encounter Start Time: 10:40 Pt still sleepy after trazodoone last night, didnt eat as well. Pt did not [facility] as expected, she has not been her elong enough to qualify , and i held her to monitor her due to the agitation. Slept well, but still sleepy, not talking much, no new complaints ROS not obtainable due to dementia - Objective MAR Reviewed: Yes Vital Signs & Weight: Vital Signs (12 hours) Temp Pulse Resp BP Pulse Ox 09/10/17 08:03 77 09/10/17 08:00 97.5 F L 77 20 192/77 H 92 L 09/10/17 07:50 96.7 F L 80 16 09/10/17 04:00 96.7 F L 80 16 162/74 H 93 L I&O: 09/09/17 09/10/17 09/11/17 06:59 06:59 06:59 Intake Total 720 670 Balance 720 670 Result Diagrams: 09/09/17 05:53 09/09/17 05:53 Phys Exam - Physical Examination Constitutional: NAD HEENT: PERRLA, moist MMs, sclera anicteric, oral pharynx no lesions Neck: no nodes, no JVD, supple, full ROM Respiratory: no wheezing, no rales, no rhonchi, clear to auscultation bilateral Cardiovascular: RRR, no significant murmur, no rub Gastrointestinal: soft, non-tender, no distention, positive bowel sounds Musculoskeletal: pulses present, edema present Neurological: moves all 4 limbs Lymphatic: no nodes Skin: no rash, normal turgor, cap refill <2 seconds Dx/Plan (1) Acute metabolic encephalopathy Code(s): G93.41 - METABOLIC ENCEPHALOPATHY Status: Acute Comment: secondary to overdose of tramadol. recommended max dose /24 hours is 300, pt was on 400. better after holding, but still not back to baseline. will change to inpatient, transfer to medical, and will ask case management to eval for SNF palcement. [place] [facility] unable to do skilled, approve by [place] for SNF, will be ready in 1-2 days (2) Accidental overdose Code(s): T50.901A - POISONING BY UNSP DRUG/MEDS/BIOL SUBST, ACCIDENTAL, INIT Status: Resolved Qualifiers: Encounter type: initial encounter Qualified Code(s): T50.901A - Poisoning by unspecified drugs, medicaments and biological substances, accidental ( unintentional), initial encounter Comment: tramadol, overdosed for pt age and renal function (3) Physical deconditioning Code(s): R53.81 - OTHER MALAISE Status: Acute Comment: to SNF on D/C (4) Dehydration, moderate Code(s): E86.0 - DEHYDRATION Status: Resolved Comment: seocndary to AMs, decreased moblilit. Ate good today, stop fluids, watch (5) CAD (coronary artery disease) Code(s): I25.10 - ATHSCL HEART DISEASE OF [place] CORONARY ARTERY W/O ANG PCTRS Status: Chronic Qualifiers: Coronary Disease-Associated Artery/Lesion type: [place] artery [place] vs. transplanted heart: [place] heart Associated angina: without angina Qualified Code(s): I25.10 - Atherosclerotic heart disease of [place] coronary artery without angina pectoris (6) Dementia Code(s): F03.90 - UNSPECIFIED DEMENTIA WITHOUT BEHAVIORAL DISTURBANCE Status: Chronic Qualifiers: Dementia type: unspecified type Dementia behavioral disturbance: without behavioral disturbance Qualified Code(s): F03.90 - Unspecified dementia without behavioral disturbance (7) Dyslipidemia Code(s): E78.5 - HYPERLIPIDEMIA, UNSPECIFIED Status: Chronic (8) Hypertension Code(s): I10 - ESSENTIAL (PRIMARY) HYPERTENSION Status: Chronic Qualifiers: Hypertension type: essential hypertension Qualified Code(s): I10 - Essential (primary) hypertension - Plan * . decrease trazodoone. requested family get a donut pillow. try to mobilize again. poor prognosis if she doesnt move or eat
[2017-09-10] MEDS: Ferrous Sulfate 325 MG TAB PO SCH (21:24)
[2017-09-10] MEDS: Lisinopril 10 MG TAB PO SCH (21:24)
[2017-09-10] MEDS: Atorvastatin Calcium 40 MG TAB PO SCH (21:24)
[2017-09-10] MEDS: Famotidine 20 MG TAB PO SCH (21:28)
[2017-09-11] MEDS: Sodium Chloride 0.9% 1,000 ML IV SCH (05:54)
[2017-09-11 07:42] VITALS: BP 122/58; TEMP 97.6
[2017-09-11] MEDS: Aspirin 81 mg Enteric Coated Tablet PO SCH (08:09)
[2017-09-11] MEDS: Amlodipine 5 MG TAB PO SCH (08:09)
[2017-09-11] MEDS: traMADol HCl 50 MG TAB PO PRN (08:09)
[2017-09-11] MEDS ORDERED: Lidocaine 5% Patch TD SCH (09:00)
--- NOTE | 2017-09-11 10:05 | RAD ---
CHEST 1 VIEW: Date: 09/11/17 HISTORY: Oncologic patient. Chest pain. COMPARISON: 09/07/17. FINDINGS: Dual lead pacer is present. Surgical clips project over the abdomen. There is new linear thickening o f the right lower lobe extending into the periphery. Loop recorder is present. No pneumothorax. IMPRESSION: 1. New right peripheral linear opacity, may reflect atelectasis. 2. Large sliding hiatal hernia. POS: [facility]
--- NOTE | 2017-09-11 13:24 | DIS ---
DATE OF ADMISSION: 09/07/2017 DATE OF DISCHARGE: 09/11/2017 PRIMARY CARE PHYSICIAN: Dr. Berry Bertrand. DISCHARGE DIAGNOSES: 1. Severe physical deconditioning. 2. Accidental overdose of tramadol. 3. Metabolic encephalopathy. 4. Dementia. 5. Hypertension. 6. Recent right pubic ramus fracture. 7. Intractable pain. CONSULTATIONS: None. PROCEDURES: None. HISTORY AND PHYSICAL: Ms. Brown is an 87-year-old female, whom I know from previous admission, pr esented in the emergency department on 09/07/2017 for altered mental status. The patient had fallen about 5 days prior to admission. She was seen and evaluated in the ER and sen t home on pain medicine. Her pain was inadequately controlled, and she continued to be basically imm obile and bedbound due to pain, whereas normally she was able to transfer to a wheelchair and ambulat ory via wheelchair. Because of increased pain, she had her pain medicine increased from tramadol 50 q.6 hours q.i.d. p.r. n. to 100 q.i.d., and subsequently, became altered progressively. She was brought to the emergency department on 09/07/2017 for evaluation. Laboratory workup was larg rohan normal except for some mild dehydration. She was subsequently placed on observation by me. HOSPITAL COURSE: The patient was seen and examined by me in the emergency department. She was held from pain medicines overnight and hydrated with normal saline. Overnight, 09/07 to 09/08, she was mo re awake and alert. She was oriented x1, which were normal. PT/OT was ordered; however, she was having too much discomfort, so she was changed to an inpatient st [facility] and transferred to the medical floor. Her metabolic encephalopathy, improved. She underwent a daily evaluation by physical therapy, but overnight 09/08 to 09/09, she did not sleep well and was st ill having a discomfort. On 09/09/2017, she was very agitated. She did not sleep well the night prior and was having discomfo rt. Her tramadol was restarted at her regular dose, and she was started on trazodone 50 mg p.o. at b edtime for her insomnia. 09/09 to 09/10, she did sleep all night; however, the morning was still somewhat sedate from her traz odone. Her dose was cut in half from 50 to 25 mg at bedtime and her pain medicines were continued. On 09/10, she was able to actually sit up for 6-7 minutes with physical therapy, which certainly she has not been able to do in over a week. She tolerated the overnight dose of trazodone better and on 09/11/2017 was back to her baseline mental status and had no discomfort. She was stable for discharge to a assisted facility at [facility] for rehabilitation. PHYSICAL EXAMINATION: The patient was seen and examined. Discharge plan and disposition was discussed with the patient [id number] at the bedside. DISCHARGE MEDICATIONS: 1. Amlodipine 5 mg daily. 2. Aspirin 81 mg daily. 3. Atorvastatin 40 mg p.o. at bedtime. 4. Iron sulfate 325 mg daily. 5. Isosorbide mononitrate 30 mg p.o. daily. 6. Lisinopril 10 mg daily. 7. Tramadol 50 mg p.o. q.6 hours p.r.n. 8. Trazodone 25 mg p.o. at bedtime. FOLLOWUP APPOINTMENTS Dr. Bertrand within a week. DISCHARGE ACTIVITY: Per orthopedic limitations. PT, OT, and speech therapy have been ordered. DISCHARGE CONDITION: Stable. DISPOSITION: Will be to discharge to [facility] for assisted rehabilitation prior to returning to her [facility]. DISCHARGE DIET: Heart healthy recommended.
--- NOTE | 2017-10-16 15:38 | EKG ---
Test Reason : FABIAN MRA1 Blood Pressure : / mmHG Vent. Rate : 085 BPM Atrial Rate : 085 BPM P-R Int : 136 ms QRS Dur : 130 ms QT Int : 382 ms P-R-T Axes : 040 -10 -46 degrees QTc Int : 454 ms Sinus rhythm with occasional , and consecutive Premature ventricular complexes and Fusion complexes Right bundle branch block T wave abnormality, consider inferolateral ischemia Abnormal ECG Confirmed by MERYL BALLESTEROS, IVETH ([id number]), editor in chief SHAUN HILARIO ([id number]) on 10/16/2017 3:37:52 PM Referred By: Confirmed By:IVETH SHETH MD
== END 2017-09-11 13:05 | DRG 917 ==
LOC: ERS 10:56 → 2NO 13:59 → OBSVTOIN 09-08 12:27 → ONC 09-08 15:55
PROVIDERS: ADMIT Internal Medicine Infectious Disease; ATTEND Internal Medicine Infectious Disease
DX: T40.4X1A Poisoning by other synthetic narcotics, accidental (unintentional), initial encounter (principal); J96.01 Acute respiratory failure with hypoxia; G92 Toxic encephalopathy; I48.2 Chronic atrial fibrillation; F03.90 Unspecified dementia, unspecified severity, without behavioral disturbance, psychotic disturbance, mood disturbance, and anxiety; E86.0 Dehydration; E78.5 Hyperlipidemia, unspecified; I25.10 Atherosclerotic heart disease of native coronary artery without angina pectoris; I12.9 Hypertensive chronic kidney disease with stage 1 through stage 4 chronic kidney disease, or unspecified chronic kidney disease; S32.591D Other specified fracture of right pubis, subsequent encounter for fracture with routine healing; N18.3 Chronic kidney disease, stage 3 (moderate); W19.XXXD Unspecified fall, subsequent encounter; M19.90 Unspecified osteoarthritis, unspecified site; Z66 Do not resuscitate; Z95.0 Presence of cardiac pacemaker; R53.81 Other malaise
CPT/HCPCS: 36415; 51701; 70450; 71045; 74177; 80048; 80053; 80306; 81003; 82550; 82553; 83605; 83690; 83735; 84484; 85025; 87040; 87086; 93005; 94760; A4216; A4353; G8978-GP-CM; G8979-GP-CL; G8987-GO-CM; G8988-GO-CL

== ENCOUNTER 2017-11-20 13:18 | Emergency (ER) | payer MEDICARE, OTHER ==
[2017-11-20 14:35] LABS: #Basophils 0.1 thou/uL (0.0-0.2); #Eosinphils 0.1 thou/uL (0.0-0.7); #Lymphocytes 1.3 thou/uL (1.20-3.40); #Monocytes 0.8 thou/uL (0.11-0.59); #Neutrophils 7.9 thou/uL (1.40-6.50); %Basophils 0.7 % (0.0-1.0); %Eosinophils 1.2 % (0.0-10.0); %Lymphocytes 12.8 % (21.0-51.0); %Monocytes 7.4 % (0.0-10.0); Hemoglobin 12.9 g/dL (12.0-16.0); Mean Corpuscular HGB CONC 33.2 g/dL (32.0-36.0); Mean Corpuscular Hemoglobin 31.8 pg (27.0-31.0); Mean Corpuscular Volume 95.8 fL (78.0-98.0); Mean Platelet Volume 7.5 fL (7.4-10.4); Platelet Count 285 thou/uL (130-400); Red Blood Cell (RBC) Count 4.06 mill/uL (4.20-5.40); White Blood Cell (WBC) Count 10.1 thou/uL (4.8-10.8)
[2017-11-20 14:54] LABS: ALT (SGPT) 13 U/L (8-55); AST (SGOT) 20 U/L (5-34); Albumin 3.9 g/dL (3.4-4.8); Alkaline Phosphatase 157 U/L (40-150); Anion Gap 15 mmol/L (10-20); BUN (Urea Nitrogen) 16 mg/dL (9.8-20.1); Bilirubin, Total 0.3 mg/dL (0.2-1.2); Calc. Creatinine Clearance 0 mL/min (70-130); Carbon Dioxide 21 mmol/L (23-31); Chloride 107 mmol/L (98-107); Estimated GFR-MDRD 71; Globulin 2.6 g/dL (2.4-3.5); Glucose 98 mg/dL (83-110); Potassium 4.7 mmol/L (3.5-5.1); Protein, Total 6.5 g/dL (6.0-8.3); Sodium 138 mmol/L (136-145)
[2017-11-20 15:00] LABS: CKMB 0.9 ng/mL (0-6.6); Troponin I Less than 0.010 ng/mL (< 0.028)
--- NOTE | 2017-11-20 17:16 | CT ---
CT CHEST WITH CONTRAST 11/20/17 HISTORY: Food bolus. Aspiration. COMPARISON: CT abdomen and pelvis 09/07/17. FINDINGS: There is a large sliding hiatal hernia with approximately 40-50% of the gastric volume within the n[place] st. There is extensive submucosal edema of the distal esophagus. The extensive submucosal edema and t hickening is new from the comparison examination. No evidence of acute volvulus. The aortic size is normal. There is mild basilar calcification of the aorta. Mild small volume perica rdial effusion. Moderate vascular calcifications of the coronary arteries. Multiple radiopacities of the left upper quadrant of the abdomen similar to the comparison exam. Prio r left nephrectomy. Thyroid is very heterogeneous with multiple nodules. No focal air space consolidation, pneumothorax o r effusion. There is a nodule within the lingula measuring up to 6 mm. There is a compression deformity at T12, similar. IMPRESSION: 1. No evidence of an impacted food bolus. 2. New from the comparison examination is extensive submucosal edema of the distal esophagus at the level of the large sliding hiatal hernia, may reflect focal acute esophagitis. No evidence of per foration. 3. Large sliding hiatal hernia containing approximately 40-50% of the stomach volume within the thoracic cavity. 4. Old right sided rib fractures. 5. No evidence for aspiration. POS: [facility]
--- NOTE | 2017-11-20 17:48 | CT ---
CT OF THE NECK WITH CONTRAST 11/20/17 COMPARISON: CT chest 11/20/17. HISTORY: Lump in throat. Patient felt like she choked on something at breakfast. Patient's son reports the pat ient had a banana and sausage. Patient is spitting up clear slimy solution since this morning. TECHNIQUE: Multiple contiguous axial images were obtained in a CT of the neck soft tissues with contrast. Garcia l and sagittal reformats were performed. FINDINGS: There is a well circumscribed low density region measuring 1.2 x 1.3 cm in size along the inferior as pect of the adenoid tonsils. This appears to be submucosal in location rather than in the airway and could represent a small fluid collection within the tonsil. The palatine tonsils are unremarkable. No mucosal abnormality is seen in the nasopharynx or subglottic regions. The esophagus is normal in caliber without significant distention. The thyroid is enlarged and contai ns hypodensities which likely represent either nodules or cysts. No cervical adenopathy is seen. The salivary glands are unremarkable. The visualized intracranial str uctures are unremarkable. IMPRESSION: 1. Hypodense region along the inferior aspect of the adenoid tonsil could potentially represent a peritonsillar abscess. This appears submucosal, but a lesion within the airway is also a possibilit y. A lesion along the airway that is adherent to the left lateral wall is also a possibility. 2. Thyroid hypodensities should be further evaluated with nonemergent thyroid ultrasound on an o utpatient basis. POS: [facility]
== END 2017-11-20 17:44 | disposition home or self-care (01) ==
LOC: ERS 13:18
DX: R13.10 Dysphagia, unspecified (principal); E78.5 Hyperlipidemia, unspecified; I10 Essential (primary) hypertension; M19.90 Unspecified osteoarthritis, unspecified site; I25.2 Old myocardial infarction; F03.90 Unspecified dementia, unspecified severity, without behavioral disturbance, psychotic disturbance, mood disturbance, and anxiety; Z86.718 Personal history of other venous thrombosis and embolism; Z85.51 Personal history of malignant neoplasm of bladder; Z85.528 Personal history of other malignant neoplasm of kidney
CPT/HCPCS: 36415; 70491; 71260; 80053; 82553; 83605; 84484; 85025; 93005

== ENCOUNTER 2018-07-14 10:47 | Emergency (ER) | payer MEDICARE, OTHER ==
--- NOTE | 2018-07-14 11:52 | RAD ---
PORTABLE CHEST: Date: 07-14-18 Provided Clinical History: Cough. FINDINGS: Comparison 09-11-17. Cardiac silhouette appears enlarged. Large hiatal hernia is again seen. Left subclavian cardiac pacin g device is noted with lead tips overlying expected location of RA and RV. Implanted loop recorder de vice overlies the left chest. Surgical clips seen overlying the upper abdomen left of midline. The jorge ngs are hypoinflated by grossly clear. No pleural fluid or pneumothorax is evident. IMPRESSION: No definite evidence for an acute cardiopulmonary process. POS: [facility]
== END 2018-07-14 12:09 ==
LOC: ERS 10:47
DX: T18.128A Food in esophagus causing other injury, initial encounter (principal); I25.2 Old myocardial infarction; E78.5 Hyperlipidemia, unspecified; I10 Essential (primary) hypertension; F03.90 Unspecified dementia, unspecified severity, without behavioral disturbance, psychotic disturbance, mood disturbance, and anxiety
CPT/HCPCS: 71045

== ENCOUNTER 2018-10-01 20:24 | Emergency (ER) | payer MEDICARE, OTHER ==
--- NOTE | 2018-10-01 20:43 | RAD ---
Portable frontal chest radiograph: 10/01/2018 COMPARISON: 07/14/2018 HISTORY: Chest pain for one month FINDINGS: Stable transvenous pacing device, left upper quadrant postoperative clips, loop recorder, a nd prominent hiatal hernia. Heart and mediastinal contours are stable. No pneumothorax, pleural fluid, focal consolidation, or alveolar edema. IMPRESSION: No acute findings.
[2018-10-01 20:58] LABS: #Eosinphils 0.2 thou/uL (0.0-0.7); #Lymphocytes 1.8 thou/uL (1.20-3.40); #Monocytes 0.8 thou/uL (0.11-0.59); #Neutrophils 3.7 thou/uL (1.40-6.50); %Basophils 0.7 % (0.0-1.0); %Eosinophils 3.4 % (0.0-10.0); %Neutrophils 56.9 % (42.0-75.0); Hemoglobin 8.7 g/dL (12.0-16.0); Mean Corpuscular HGB CONC 30.7 g/dL (32.0-36.0); Mean Corpuscular Hemoglobin 28.7 pg (27.0-31.0); Mean Corpuscular Volume 93.4 fL (78.0-98.0); Mean Platelet Volume 7.2 fL (7.4-10.4); Platelet Count 348 thou/uL (130-400); RBC Distribution Width 12.7 % (11.5-14.5); Red Blood Cell (RBC) Count 3.01 mill/uL (4.20-5.40); White Blood Cell (WBC) Count 6.5 thou/uL (4.8-10.8)
[2018-10-01] MEDS ORDERED: Acetaminophen 500 MG TAB ONE (21:31)
[2018-10-01] MEDS ORDERED: Aspirin Chewable 81 MG TAB ONE (21:31)
[2018-10-01] MEDS ORDERED: Nitroglycerin 0.4 MG TAB 1 EACH ONE (21:31)
[2018-10-02 01:25] LABS: Troponin I Less than 0.010 ng/mL (< 0.028)
== END 2018-10-02 02:01 | disposition home or self-care (01) ==
LOC: ERS 20:24
DX: R07.89 Other chest pain (principal); E78.5 Hyperlipidemia, unspecified; I10 Essential (primary) hypertension; Z86.718 Personal history of other venous thrombosis and embolism; Z79.899 Other long term (current) drug therapy; Z79.82 Long term (current) use of aspirin
CPT/HCPCS: 36415; 71045; 82550; 84484; 85025; 93005